=== PATIENT | female | born 1995 | race Caucasian/White ===

== ENCOUNTER 2023-10-19 08:08 | Emergency (ER) | payer BC, SELFPAY ==
--- NOTE | 2023-10-19 08:09 | ED.ALLEREA ---
HPI - Allergic Reaction General Chief complaint: Skin/Abscess/Foreign Body Stated complaint: ALLERGIC REACTION Time Seen by Provider: 10/19/23 08:08 Source: patient Mode of arrival: ambulatory Limitations: no limitations History of Present Illness HPI narrative: Cailin is a 28-year-old female patient presenting to the clinic today with complaints of a possible allergic reaction. She reports she took Advil at 5:30 a.m. this morning for menstrual cramping. States shortly after taking the Advil she developed facial swelling, itchy, throat tightness, and shortness of breath. She took Benadryl while at work and they sent her home and she used her albuterol inhaler at home and states that her symptoms have somewhat improved. Still feels as though her face is swelling and she is having some itchiness. Denies any chest pain or shortness of breath currently. No tongue swelling or difficulty breathing. Related Data Home Medications Medication Instructions Recorded Confirmed norgestrel 0.3 mg-ethinyl 1 tablet PO DAILY 10/19/23 10/19/23 estradiol 30 mcg tablet (Ivanna (28)) Allergies Allergy/AdvReac Type Severity Reaction Status Date / Time ibuprofen [From Advil] Allergy Redness of Verified 10/19/23 08:23 Skin Penicillins Allergy Hives Verified 10/19/23 08:23 Sulfa (Sulfonamide Allergy Rash Verified 10/19/23 08:23 Antibiotics) Review of Systems Review of Systems: Pertinent positives per HPI. Patient denies any fever, chills, rash, headache, visual changes, dizziness, cough, chest pain, palpitations, nausea, vomiting, diarrhea, constipation, abdominal pain, or any urinary issues. PMFSH Comments At the time of my signature, I reviewed and agree with the nursing past medical, surgical, social, and family history. There is no relevant family history pertinent to the patient complaint. Exam Narrative: General: Well-developed, well nourished, in no apparent distress Head: Normocephalic, atraumatic Eyes: Pupils equally round and reactive to light bilaterally, EOM intact, sclera and conjunctive clear, no discharge, lids normal Ears: TMs intact and clear, ear canals clear, no drainage, grossly hearing normal. Nose: Nares patent, clear nasal discharge, moderate inflammation, no sinus tenderness. Mouth: Oral pharynx without lesions or masses, good dentition, MMM. Neck: Supple, trachea midline, no enlargement of anterior or posterior cervical nodes, no thyroid masses or goiter palpable. Cardio: Regular rate and rhythm, s1 and s2 normal, no murmur appreciated. Resp: Clear to auscultation bilaterally, no rhonchi, rales, wheezing or rubs Course Course Emergency Course: Portions of this record may have been created with voice recognition software. Level of Care: Express Care Visit Vital Signs Vital signs: Vital Signs Temperature 36.5 C 10/19/23 08:16 Pulse Rate 69 10/19/23 08:16 Respiratory Rate 16 10/19/23 08:16 Blood Pressure 132/82 10/19/23 08:16 Pulse Oximetry 100 10/19/23 08:16 Temperature 36.5 C 10/19/23 08:16 Pulse Rate 69 10/19/23 08:16 Respiratory Rate 16 10/19/23 08:16 Blood Pressure 132/82 10/19/23 08:16 Pulse Oximetry 100 10/19/23 08:16 Vital signs reviewed MDM - Allergic Reaction MDM Narrative Medical decision making narrative: At the time of visit patient is resting comfortably on the exam table. Patient appears to be nontoxic. Medications: Dexamethasone 10 mg IM Plan: I suspect patient may be having an allergic reaction to Advil. Dexamethasone 10 mg IM was given in the clinic today. Will send in prescription for prednisone, albuterol inhaler, and Pepcid. Patient's oxygen saturations 100% on room air in her lung sounds are clear and she has no difficulty breathing or tongue swelling at this time. Supportive measures were discussed with the patient and they voiced understanding discharge instructions and agrees to treatment plan.
[2023-10-19 08:16] VITALS: BP 132/82; PULSE 69; RESP 16; TEMP 36.5; O2SAT 100
[2023-10-19] MEDS: dexAMETHasone SOD PHOS INJ 10 MG/ML 1 ML VIAL IM (08:31)
== END 2023-10-19 08:35 | disposition home or self-care (01) ==
PROVIDERS: Emergency Provider Nurse Practitioner Family
DX: R22.0 Localized swelling, mass and lump, head (principal); L29.9 Pruritus, unspecified; R06.02 Shortness of breath; R07.0 Pain in throat; T39.315A Adverse effect of propionic acid derivatives, initial encounter
CPT/HCPCS: 96372; 99203; G0463; J1100